=== PATIENT | female | born 1980 | race Two or more races ===

== ENCOUNTER 2017-09-29 16:34 | Emergency (ER) | payer OTHER ==
[~2017-09-29] VITALS: Ht 157.5 cm; Wt 64.9 kg
[2017-09-29] MEDS ORDERED: AMBIEN10 MG PO (16:52)
[2017-09-29] MEDS ORDERED: MINOCYCLINE HCL50 MG PO (16:53)
[2017-09-29] MEDS ORDERED: LIDOCAINE1 EACH TD (16:53)
[2017-09-29] MEDS ORDERED: FLECTOR1 EACH TOP (16:54)
[2017-09-29] MEDS ORDERED: KETOROLAC TROME10 MG PO (17:32)
== END 2017-09-29 17:45 | disposition home or self-care (01) ==
LOC: ED 16:34
DX: M79.1 Myalgia (principal); Z79.899 Other long term (current) drug therapy
CPT/HCPCS: 99283

== ENCOUNTER 2018-10-13 17:48 | Emergency (ER) | payer OTHER ==
[~2018-10-13] VITALS: Ht 157.5 cm; Wt 64.8 kg
[~2018-10-13 17:48] MED LIST: AMBIEN10 MG PO; FLECTOR1 EACH TOP; KETOROLAC TROME10 MG PO; LIDOCAINE1 EACH TD; MINOCYCLINE HCL50 MG PO
--- OUTSIDE RECORDS SUMMARY | 2018-10-13 17:52 | XMS ---
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 [facility] has no Care Guidelines for this patient. Dora VISIT COUNT (12 MO.) 1 NELY Wooten TOTAL 1 NOTE: Visits indicate total known visits. ED/C VISIT TRACKING (12 MO.) 10/13/2018 17:50 NELY Hay OR TYPE: Emergency COMPLAINT: - RIGHT MIDDLE FINGER INPATIENT VISIT TRACKING (12 MO.) No inpatient visits to display in this time frame [email or web address]
== END 2018-10-13 18:00 | disposition home or self-care (01) ==
LOC: ED 17:48
DX: Z00.8 Encounter for other general examination (principal)